=== PATIENT | male | born 1975 | race Caucasian/White ===

== ENCOUNTER 2023-03-19 20:17 | Emergency (ER) | payer SELFPAY ==
[~2023-03-19] VITALS: Ht 180.3 cm; Wt 82.0 kg
[2023-03-19 20:33] VITALS: TEMP 97.8; O2SAT 98
[2023-03-19] MEDS ORDERED: IBUPROFEN 600MG TABLET PO ONE (22:15)
[2023-03-19] MEDS ORDERED: IBUP-2029 MT (23:17)
[2023-03-20 00:13] VITALS: BP 133/82; PULSE 70; RESP 16
== END 2023-03-20 00:14 | disposition home or self-care (01) ==
LOC: ER 20:17
DX: J02.9 Acute pharyngitis, unspecified (principal)
CPT/HCPCS: 87070; 87077; 87430; 99283